=== PATIENT | male | born 1985 | race African-American/Black ===

== ENCOUNTER 2017-12-03 04:21 | Emergency (ER) | payer SELFPAY ==
[~2017-12-03] VITALS: Ht 185.4 cm; Wt 74.8 kg
[2017-12-03 04:42] VITALS: BP 119/75
== END 2017-12-03 06:53 | disposition home or self-care (01) ==
LOC: ER 04:21
DX: N50.89 Other specified disorders of the male genital organs (principal); F32.9 Major depressive disorder, single episode, unspecified; F41.9 Anxiety disorder, unspecified
CPT/HCPCS: 76870; 99284; A4606; Z7610